=== PATIENT | female | born 1990 | race Caucasian/White ===

== ENCOUNTER 2023-05-29 09:00 | Outpatient (CLI) | payer BC | END 2023-05-29 09:01 | disposition home or self-care (01) | LOC: CSHMRI 09:00 | PROVIDERS: ATTEND Neurological Surgery | DX: M54.2 Cervicalgia (principal); M47.812 Spondylosis without myelopathy or radiculopathy, cervical region | CPT/HCPCS: 72052; 72141 ==

== ENCOUNTER 2023-10-26 12:53 | Outpatient (CLI) | payer BC | END 2023-10-26 12:54 | disposition home or self-care (01) | LOC: CSHULT 12:53 | PROVIDERS: ATTEND Family Medicine | DX: R25.2 Cramp and spasm (principal); R60.0 Localized edema; I82.402 Acute embolism and thrombosis of unspecified deep veins of left lower extremity; I82.442 Acute embolism and thrombosis of left tibial vein | CPT/HCPCS: 93970 ==